=== PATIENT | male | born 1960 | race Caucasian/White ===

== ENCOUNTER 2021-04-07 19:00 | Outpatient (CLI) | payer OTHER | END 2021-04-07 19:01 | disposition home or self-care (01) | LOC: SLEEPLAB 19:00 | PROVIDERS: ATTEND Orthopaedic Surgery | DX: G47.33 Obstructive sleep apnea (adult) (pediatric) (principal); G47.00 Insomnia, unspecified; G47.10 Hypersomnia, unspecified | CPT/HCPCS: 95811 ==

== ENCOUNTER 2021-11-13 10:34 | Outpatient (CLI) | payer OTHER | END 2021-11-13 10:35 | disposition home or self-care (01) | LOC: LABBT 10:34 | PROVIDERS: ATTEND Urology | DX: Z01.818 Encounter for other preprocedural examination (principal); Z20.822 Contact with and (suspected) exposure to COVID-19 | CPT/HCPCS: 80048; 81001; 85027; 85610; 85730; 86850; 86900; 86901; 87086; 87811 ==

== ENCOUNTER 2021-11-18 09:09 | Inpatient (IN) | payer OTHER ==
[2021-11-13 11:54] LABS: Hemoglobin 14.6 g/dL (13.5-17.5); Mean Corpuscular HGB CONC 35.3 g/dL (32.0-36.0); Mean Corpuscular Hemoglobin 29.7 pg (27.0-33.0); Mean Corpuscular Volume 84.1 fl (81.2-95.1); Mean Platelet Volume 9.8 fl (7.4-10.4); Platelet Count 190 10x3/uL (150-450); RBC Distribution Width 12.9 % (11.5-14.5); Red Blood Cell (RBC) Count 4.92 10x6/uL (4.32-5.72); White Blood Cell (WBC) Count 5.4 10x3/uL (3.5-10.5)
[2021-11-13 12:08] LABS: Bilirubin Neg (Negative); Blood, Urine 25 (Negative); Clarity Clear (Clear); Glucose, Urine (Dipstick) Normal (Negative); Ketone, Urine Negative (Negative); Leukocyte Negative (Negative); Nitrite Negative (Negative); Protein, Urine (Dipstick) Negative (Neg-Trace); Urobilinogen Normal mg/dL (Less than 2)
[2021-11-13 12:10] LABS: PTT 26.5 sec (22.0-33.0); Prothrombin Time 10.5 sec (9.5-12.1)
[2021-11-13 12:14] LABS: Bacteria/HPF None Seen HPF (None Seen); Squamous Epithelial 0-3 HPF (0-3); WBC/HPF 0-3 HPF (0-3)
[2021-11-13 12:20] LABS: Anion Gap 11 mmol/L (10-20); BUN (Urea Nitrogen) 15 mg/dL (8.4-25.7); Calc. Creatinine Clearance 0 mL/min (70-130); Calcium 9.3 mg/dL (7.8-10.44); Carbon Dioxide 27 mmol/L (22-29); Chloride 105 mmol/L (98-107); Estimated GFR 98; Glucose 146 mg/dL (70-105); Potassium 4.2 mmol/L (3.5-5.1); Sodium 139 mmol/L (136-145)
[2021-11-16 13:01] VITALS: BMI 34.4
[2021-11-18] MEDS ORDERED: Levofloxacin 500 mg/D5W 100 ml Premix Bag ONE (12:20)
[2021-11-18] MEDS ORDERED: fentaNYL Citrate/PF 100 MCG/2 ML SYRINGE ONE (12:22)
[2021-11-18] MEDS ORDERED: SUGAMMADEX SODIUM 200 MG/2 ML VIAL ONE (12:22)
[2021-11-18] MEDS ORDERED: Famotidine/PF 20 mg/2ml Vial ONE (12:22)
[2021-11-18] MEDS ORDERED: Glycopyrrolate 0.2 MG/ML 5 ML SYRINGE ONE (12:30)
[2021-11-18] MEDS ORDERED: Metoclopramide HCl 10 MG/2 ML VIAL ONE (12:30)
[2021-11-18] MEDS ORDERED: Lidocaine 1% PF 5 ML VIAL ONE (12:30)
[2021-11-18] MEDS ORDERED: Neostigmine Methylsulfate 3 MG/3 ML SYRINGE ONE (12:30)
[2021-11-18] MEDS ORDERED: Ondansetron PF 4 MG/2 ML Vial ONE (12:30)
[2021-11-18] MEDS ORDERED: Rocuronium Bromide 10 MG/ML (10ML VIAL) ONE (12:30)
[2021-11-18] MEDS ORDERED: PROPOFOL 200 MG/20 ML VIAL ONE (12:30)
[2021-11-18] MEDS ORDERED: Ondansetron PF 4 MG/2 ML Vial IVP PRN (14:24)
[2021-11-18] MEDS ORDERED: Morphine 4 MG/ML VIAL SLOW IVP PRN (14:24)
[2021-11-18] MEDS ORDERED: Acetaminophen 500 MG TAB PO PRN (14:24)
[2021-11-18] MEDS ORDERED: Morphine 2 MG/ML VIAL SLOW IVP PRN (14:24)
[2021-11-18] MEDS ORDERED: diphenhydrAMINE 50 MG/ML VIAL IVP PRN (14:24)
[2021-11-18] MEDS ORDERED: Zolpidem Tartrate 5 MG TAB PO PRN (14:24)
[2021-11-18] MEDS ORDERED: Phenazopyridine HCl 97.5 MG TABLET PO PRN (14:24)
[2021-11-18] MEDS ORDERED: Mag-Al 1200 mg/1200 mg/30 ML UDCUP PO PRN (14:24)
[2021-11-18] MEDS ORDERED: Oxybutynin 5 MG TAB PO PRN (14:24)
[2021-11-18] MEDS ORDERED: HYDROcodone/Acetaminophen 5/325 mg Tablet PO PRN ×2 (14:24)
[2021-11-18] MEDS ORDERED: hydrALAZINE 20 MG/ML VIAL SLOW IVP PRN (14:24)
[2021-11-18] MEDS ORDERED: Ondansetron HCl/PF 4 MG/2 ML Vial IVP PRN (14:26)
[2021-11-18] MEDS ORDERED: Promethazine HCl 25 MG/ML VIAL IM PRN (14:26)
[2021-11-18] MEDS ORDERED: Promethazine HCl 25 MG/ML VIAL IVPB PRN (14:26)
[2021-11-18] MEDS ORDERED: Fentanyl 100 MCG/2 ML VIAL ONE (14:42)
[2021-11-18 14:54] LABS: #Eosinphils 0.1 thou/uL (0.0-0.7); #Lymphocytes 1.4 thou/uL (1.20-3.40); #Monocytes 0.4 thou/uL (0.11-0.59); #Neutrophils 2.1 thou/uL (1.40-6.50); %Basophils 0.8 % (0.0-1.0); %Eosinophils 2.8 % (0.0-10.0); %Lymphocytes 34.7 % (21.0-51.0); %Monocytes 9.2 % (0.0-10.0); %Neutrophils 52.4 % (42.0-75.0); Hemoglobin 14.4 g/dL (14.0-18.0); Mean Corpuscular HGB CONC 34.3 g/dL (32.0-36.0); Mean Corpuscular Hemoglobin 30.4 pg (27.0-31.0); Mean Corpuscular Volume 88.5 fL (78.0-98.0); Mean Platelet Volume 7.4 fL (7.4-10.4); Platelet Count 154 thou/uL (130-400); RBC Distribution Width 12.6 % (11.5-14.5); Red Blood Cell (RBC) Count 4.75 mill/uL (4.70-6.10); White Blood Cell (WBC) Count 4.1 thou/uL (4.8-10.8)
[2021-11-18 15:21] LABS: Anion Gap 11 mmol/L (10-20); BUN (Urea Nitrogen) 12 mg/dL (8.4-25.7); Calc. Creatinine Clearance 142 mL/min (70-130); Calcium 8.6 mg/dL (7.8-10.44); Carbon Dioxide 26 mmol/L (22-29); Chloride 106 mmol/L (98-107); Estimated GFR 100; Glucose 117 mg/dL (70-105); Potassium 4.3 mmol/L (3.5-5.1); Sodium 139 mmol/L (136-145)
[2021-11-18] MEDS: Sodium Chloride 0.9% 1,000 ML IV SCH ×2 (16:30→19:35)
[2021-11-18] MEDS: Tamsulosin HCl 0.4 MG CAP PO SCH (20:47)
[2021-11-18] MEDS: Docusate 100 MG CAP PO SCH (20:47)
[2021-11-18] MEDS: Famotidine/PF 20 mg/2ml Vial SLOW IVP SCH (20:47)
[2021-11-19 06:50] LABS: #Eosinphils 0.1 thou/uL (0.0-0.7); #Lymphocytes 1.1 thou/uL (1.20-3.40); #Monocytes 0.7 thou/uL (0.11-0.59); #Neutrophils 6.8 thou/uL (1.40-6.50); %Basophils 0.3 % (0.0-1.0); %Eosinophils 0.7 % (0.0-10.0); %Lymphocytes 12.7 % (21.0-51.0); %Monocytes 7.5 % (0.0-10.0); %Neutrophils 78.8 % (42.0-75.0); Hemoglobin 13.2 g/dL (14.0-18.0); Mean Corpuscular HGB CONC 33.6 g/dL (32.0-36.0); Mean Corpuscular Volume 89.4 fL (78.0-98.0); Mean Platelet Volume 7.2 fL (7.4-10.4); Platelet Count 144 thou/uL (130-400); RBC Distribution Width 12.6 % (11.5-14.5); White Blood Cell (WBC) Count 8.6 thou/uL (4.8-10.8)
[2021-11-19 07:13] LABS: Anion Gap 12 mmol/L (10-20); BUN (Urea Nitrogen) 13 mg/dL (8.4-25.7); Calc. Creatinine Clearance 124 mL/min (70-130); Calcium 8.6 mg/dL (7.8-10.44); Carbon Dioxide 25 mmol/L (22-29); Chloride 105 mmol/L (98-107); Estimated GFR 88; Glucose 130 mg/dL (70-105); Sodium 138 mmol/L (136-145)
[2021-11-19] MEDS ORDERED: cefTRIAXone\\ROCEPHIN 1 GM in Sodium Chloride 0.9% 100 ML IVPB SCH (08:00)
[2021-11-19] MEDS: Tamsulosin HCl 0.4 MG CAP PO SCH (08:54)
[2021-11-19] MEDS: Docusate 100 MG CAP PO SCH (08:54)
[2021-11-19] MEDS: Famotidine/PF 20 mg/2ml Vial SLOW IVP SCH (08:55)
[2021-11-19] MEDS ORDERED: Dutasteride 0.5 MG CAP PO SCH (09:00)
[2021-11-19] MEDS ORDERED: Tamsulosin HCl 0.4 MG CAP PO SCH (09:00)
[2021-11-19] MEDS: Sodium Chloride 0.9% 1,000 ML IV SCH (11:51)
[2021-11-19 13:01] VITALS: BP 132/82; TEMP 98.2
[2021-11-24 16:37] LABS: CA Oxalate Monohydrate 10 % (.); Color Orange (.); Stone Weight 4632 mg (.); Uric Acid 90 % (.)
== END 2021-11-19 13:20 | disposition home or self-care (01) | DRG 714 ==
LOC: SDC 09:09 → SURG A 14:24
PROVIDERS: ADMIT Urology; ATTEND Urology
PROC: 0VT08ZZ Resection of Prostate, Via Natural or Artificial Opening Endoscopic (ICD-10-PCS; principal; 2021-11-18)
PROC: 0TCB8ZZ Extirpation of Matter from Bladder, Via Natural or Artificial Opening Endoscopic (ICD-10-PCS; 2021-11-18)
DX: N40.1 Benign prostatic hyperplasia with lower urinary tract symptoms (principal); N21.0 Calculus in bladder
CPT/HCPCS: 36415; 80048; 81001; 82365; 85025; 85027; 85610; 85730; 86850; 86900; 86901; 87086; 87811; 88300; 88305; J0696; J1956; J2405; J2704; J2765; J3010; J3490; J7050; S0028

== ENCOUNTER 2023-01-21 08:00 | Day surgery (SDC) | payer BC ==
[2023-01-20 10:16] VITALS: BMI 29.0
[2023-01-21] MEDS ORDERED: PROPOFOL 200 MG/20 ML VIAL ONE (10:14)
== END 2023-01-21 11:30 | disposition home or self-care (01) ==
LOC: SDC 08:00
PROVIDERS: ATTEND Internal Medicine Gastroenterology
PROC: 0DJD8ZZ Inspection of Lower Intestinal Tract, Via Natural or Artificial Opening Endoscopic (ICD-10-PCS; principal; 2023-01-21)
DX: Z12.11 Encounter for screening for malignant neoplasm of colon (principal); K64.9 Unspecified hemorrhoids; E78.5 Hyperlipidemia, unspecified; G47.30 Sleep apnea, unspecified; N40.0 Benign prostatic hyperplasia without lower urinary tract symptoms; I10 Essential (primary) hypertension; Z80.0 Family history of malignant neoplasm of digestive organs; Z87.891 Personal history of nicotine dependence; Z79.899 Other long term (current) drug therapy
CPT/HCPCS: J2704